=== PATIENT | female | born 1980 | race Caucasian/White ===

== ENCOUNTER 2017-01-26 16:35 | Emergency (ER) | payer BC ==
[2017-01-26 16:54] VITALS: TEMP 98.2; O2SAT 97
[2017-01-26] MEDS ORDERED: PROCHLORPERAZINE INJ 10 MG/2 ML VIAL IV ONE (17:05)
[2017-01-26] MEDS ORDERED: SODIUM CHLORIDE 0.9% 1000ML 1,000 ML IVS ONE (17:05)
--- NOTE | 2017-01-26 18:13 | RAD ---
EXAM: Abdomen Series CLINICAL INDICATION: 36-year-old female with nausea, vomiting and diarrhea. TECHNIQUE: Single view, PA chest was obtained. Two views of the abdomen were obtained in upright and supine positioning. COMPARISON: None. FINDINGS: Chest: Unremarkable cardiac and mediastinal silhouette. Heart size is normal. Lungs are clear without focal opacity, pneumothorax or pleural effusions. The visualized bones are within normal limits. Abdomen: Gas is seen within normal caliber large bowel. Paucity of small bowel gas. No free air is identified. There are no abnormal calcifications. The osseous structures are within normal limits. The lung bases are clear. IMPRESSION: 1. No acute cardiopulmonary abnormalities. 2. Normal bowel gas pattern. Electronically signed by: Rosa Meyers MD 01/26/2017 6:12 PM CDT Workstation: [id number]
--- NOTE | 2017-01-26 18:57 | ED.PDOC ---
History of Present Illness - General Chief Complaint: GI Problem Stated Complaint: vomiting Time Seen by Provider: 01/26/17 16:36 Source: patient Exam Limitations: no limitations - History of Present Illness Initial Comments: he patient is a 36-year-old female presenting to the emergency room secondary to approximately 3 days of nausea vomiting and diarrhea. Minimal fevers. Minimal abdominal pain. No syncope or near syncope. She does have significant malaise. She has already had her appendix and gallbladder out. No blood in the stool or vomitus. No bile in the vomitus. Severity: moderate Improving Factors: nothing Worsening Factors: nothing Associated Symptoms: loss of appetite, malaise, nausea/vomiting Allergies/Adverse Reactions: Allergies NO KNOWN ALLERGY Allergy (Verified 01/26/17 16:54) Home Medications: Ambulatory Orders Promethazine HCl 25 mg PO Q6H PRN #10 tab 01/26/17 Review of Systems - Review of Systems Constitutional: States: malaise EENTM: States: no symptoms reported Respiratory: States: no symptoms reported Cardiology: States: no symptoms reported Gastrointestinal/Abdominal: States: see HPI Genitourinary: States: no symptoms reported Musculoskeletal: States: no symptoms reported Skin: States: no symptoms reported Neurological: States: no symptoms reported Endocrine: States: no symptoms reported All other Systems: No Change from Baseline Past Medical History (General) - Patient Medical History Hx Hypertension: Yes Surgical History: cholecystectomy - Vaccination History Hx Tetanus, Diphtheria Vaccination: No Hx Influenza Vaccination: No Hx Pneumococcal Vaccination: No - Social History Hx Tobacco Use: No Hx Alcohol Use: No Hx Substance Use: No Hx Substance Use Treatment: No Hx Depression: Yes - Activities of Daily Living Hospice Agency (if applicable):: None - Female History Patient is a Female of Child Bearing Age (10 -59 yrs old): No Patient : No Family Medical History - Family History Mother Family History: Unknown Physical Exam - Physical Exam General Appearance: Alert, Comfortable, No apparent distress Eye Exam: bilateral normal Ears, Nose, Throat: hearing grossly normal, normal ENT inspection, normal pharynx Neck: full range of motion, other - he patient does have significant hirsutism Respiratory: chest non-tender, lungs clear, normal breath sounds, no respiratory distress, no accessory muscle use Cardiovascular/Chest: normal peripheral pulses, regular rate, rhythm, no edema Peripheral Pulses: radial,right: 2+, radial,left: 2+, dorsalis pedis,right: 2+, dorsalis pedis,left: 2+ Gastrointestinal/Abdominal: soft, other - ild epigastric discomfort palpation. No definite rebound or peritoneal signs. 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, alert, normal mood/affect, oriented x 3 Skin Exam: normal color Comments: Vital Signs - 8 hr 01/26/17 16:40 Temperature 98.2 F Pulse Rate [ 88 pulse ox] Respiratory 18 Rate Blood Pressure 123/83 [Left Arm] O2 Sat by Pulse 97 Oximetry Progress - Progress Progress: 01/26/17 18:56 Laboratory Tests 01/26/17 01/26/17 01/26/17 17:04 17:05 17:05 WBC 5.1 RBC 5.05 Hgb 14.1 Hct 41.5 MCV 82.3 MCH 28.0 MCHC 34.0 RDW 14.3 Plt Count 294 MPV 7.1 L Absolute Neuts (auto) 2.70 Absolute Lymphs (auto) 1.70 Absolute Monos (auto) 0.60 Absolute Eos (auto) 0.10 Absolute Basos (auto) 0.00 Neutrophils % 52.6 Lymphocytes % 33.6 Monocytes % 12.5 H Eosinophils % 1.0 Basophils % 0.3 Sodium 135 Potassium 3.4 L Chloride 96 L Carbon Dioxide 31 Anion Gap 11.4 L BUN 10 Creatinine 0.60 BUN/Creatinine Ratio 16.7 Random Glucose 109 H Serum Osmolality 269.7 L Calcium 9.0 Magnesium 2.0 Total Bilirubin 1.1 H AST 146 H ALT 159 H Alkaline Phosphatase 70 Creatine Kinase 63 CK-MB (CK-2) 0.9 CK-MB (CK-2) % Not Reportable Troponin I < 0.02 Serum Total Protein 8.0 Albumin 3.9 Globulin 4.1 H Albumin/Globulin Ratio 1.0 L Amylase 34 Lipase 31 TSH 0.84 abdominal series shows no evidence of obstruction or free air. normalBowel gas pattern. the patient is a 36-year-old female presenting with symptoms of a gastroenteritis. She has responded well to IV fluids and medications. She will be written for Phenergan for when necessary use. She needs to keep well hydrated. She did have a mild elevation of her liver functions tests and does need to have these repeated in 3-4 days. ER warnings were given for any worsening. She needs to follow up with her primary care doctor in 3-4 days. Departure - Departure Clinical Impression: Gastroenteritis and colitis, viral Disposition: Discharge to Home or Self Care Condition: Fair Departure Forms: ED Discharge - Pt. Copy, Patient Portal Self Enrollment Diet: bland diet Activity: increase activity as tolerated Referrals: Pamella Doyle DO [Primary Care Provider] - 1-5 Days Prescriptions: Promethazine HCl 25 mg PO Q6H PRN #10 tab PRN Reason: Vomiting Home Medications: Ambulatory Orders Promethazine HCl 25 mg PO Q6H PRN #10 tab 01/26/17 Additional Instructions: the patient is a 36-year-old female presenting with symptoms of a gastroenteritis. She has responded well to IV fluids and medications. She will be written for Phenergan for when necessary use. She needs to keep well hydrated. She did have a mild elevation of her liver functions tests and does need to have these repeated in 3-4 days. ER warnings were given for any worsening. She needs to follow up with her primary care doctor in 3-4 days.
[2017-01-26 19:21] VITALS: BP 121/84
== END 2017-01-26 19:20 | disposition home or self-care (01) ==
LOC: ER 16:35
DX: A08.4 Viral intestinal infection, unspecified (principal); I10 Essential (primary) hypertension
CPT/HCPCS: 36415; 74020; 80053; 82150; 82550; 82553; 83690; 83735; 84443; 84484; 85025; J0780; J7030